=== PATIENT | male | born 1945 | race Caucasian/White ===

== ENCOUNTER 2022-10-18 12:39 | Outpatient (CLI) | payer MEDICARE, SELFPAY ==
--- OUTSIDE RECORDS SUMMARY | 2022-10-18 12:47 | XMS_ITS ---
Author Name RonTima contreras Address [address] [place] [address] Organization [facility] Address [address] [place] [address] Care Team Providers Care Rental Manager Name Role Phone Tima Ball Unavailable [phone] PROBLEMS Type Condition ICD9-CM Code EWN22-PQ Code Onset Dates Condition Status SNOMED Code Problem Thyroid nodule E04.1 Active 744627205 Problem Other male erectile dysfunction N52.8 Active 243760213 Problem Prostate cancer C61 Active 70809727 4 Problem Hypothyroidism E03.9 Active 07592949 Problem OA (osteoarthritis) M19.90 Active 3962 35361 ALLERGIES No Known Allergies ENCOUNTERS Encounter Location Date Diagnosis [facility] [address] [place] [address] Sep, [facility] [address] [place] [address] Mar, Encounter to establish care Z76.89 ; Hypothyroidism E03.9 ; OA (osteoarthritis) M19.90 ; Prostate cancer C61 and Thyroid nodule E04.1 [facility] [address] [place] [address] November, [facility] [address] [place] [address] Aug, Callus of foot L84 ; Hypothyroidism E03.9 and Prostate cancer C61 [facility] [address] [place] [address] 14 May, 2019 Other male erectile dysfunction N52.8 [facility] [address] [place] [address] Feb, Hypothyroidism E03.9 and Prostate cancer C61 [facility] [address] [place] [address] 04 Aug, 2018 Hypothyroidism E03.9 ; Prostate cancer C61 and OA (osteoarthritis) M19.90 [facility] [address] [place] [address] Jul, [facility] [address] [place] [address] Jul, Encounter for screening colonoscopy Z12.11 [facility] [address] [place] [address] Feb, Risk for falls Z91.81 ; Hypothyroidism E03.9 and Prostate cancer C61 [facility] [address] [place] [address] November, Hypothyroid E03.9 [facility] [address] [place] [address] Aug, Hypothyroid E03.9 and Prostate cancer C61 [facility] [address] [place] [address] Jul, [facility] [address] [place] [address] Mar, Thyroid nodule E04.1 [facility] [address] [place] [address] Dec, Hypothyroid E03.9 and Syncope and collapse R55 [facility] [address] [place] [address] November, Hypothyroid E03.9 [facility] [address] [place] [address] Sep, Hypothyroid E03.9 and Syncope and collapse R55 [facility] [address] [place] [address] May, Encounter for drug screening Z02.83 ; Prostate cancer C61 ; Alcohol screening Z13.89 ; LOC (loss of consciousness) R40.20 and Hypothyroidism E03.9 [facility] [address] [place] [address] Feb, [facility] [address] [place] [address] Feb, Hypothyroidism E03.9 [facility] [address] [place] [address] Sep, Back pain M54.9 ; Hypothyroidism E03.9 and OA (osteoarthritis) M19.90 [facility] [address] [place] [address] May, Hypothyroidism E03.9 and Elevated PSA R97.2 [facility] [address] [place] [address] May, HYPOTHYROIDISM 244.9 [facility] [address] [place] [address] May, Elevated PSA R97.2 [facility] [address] [place] [address] May, Abdominal discomfort R10.9 and Encounter for screening for malignant neoplasm of prostate Z12.5 [facility] [address] [place] [address] Jan, HYPOTHYROIDISM 244.9 ; 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 ; Cerumen impaction 380.4 and ND VAC STRPTCS PNEUMNI B V03.82 [facility] [address] [place] [address] Jan, Hypothyroid 244.9 [facility] [address] [place] [address] Jan, Hypothyroid 244.9 [facility] [address] [place] [address] Oct, HYPOTHYROIDISM 244.9 ; Allergic rhinitis due to allergen 477.8 and Cerumen 380.4 [facility] [address] [place] [address] Aug, HYPOTHYROIDISM 244.9 [facility] [address] [place] [address] Aug, HYPOTHYROIDISM 244.9 [facility] [address] [place] [address] May, Carpal tunnel syndrome 354.0 [facility] [address] [place] [address] Jan, Double vision 368.2 [facility] [address] [place] [address] Jul, CVA (cerebral infarction) 434.91 [facility] [address] [place] [address] May, Double vision 368.2 [facility] [address] [place] [address] Apr, Double vision 368.2 and Carotid bruit present 785.9 [facility] [address] [place] [address] Apr, Double vision 368.2 [facility] [address] [place] [address] Sep, [facility] [address] [place] [address] Sep, [facility] [address] [place] [address] Sep, [facility] [address] [place] [address] Jul, [facility] [address] [place] [address] November, IMMUNIZATIONS Vaccine Route Administration Date Status Pneumococcal ADULT NONSTATE PCV13 [id number] IM Intramuscular February 14, 2015 Administered Influenza HISTORY Unknown Apr 05, 2018 Administe red Influenza HISTORY Unknown Apr 24, 2016 Administer ed Influenza HISTORY Unknown Apr 01, 2015 Administe red Influenza HISTORY Unknown Apr 03, 2013 Administe red Influenza HISTORY Unknown Apr 15, 2012 Administe red Pneumococcal Hx-UNSPECIFIED Unknown Apr 24, 2016 Administered SOCIAL HISTORY Qualifiers Date Never Smoker REASON FOR REFERRAL FUNCTIONAL STATUS PLAN OF CARE Activity Details VITAL SIGNS Height 65.5 in 2020-04-15 Height 65.5 in 2019-09-16 Height 65.5 in 2019-02-23 Height 65.5 in 2018-08-25 Height 65.5 in 2018-02-24 Height 65.5 in 2017-08-23 Height 65.5 in 2017-03-22 Height 65.5 in 2016-12-20 Height 65.5 in 2016-09-19 Height 65.5 in 2016-06-20 Height 65.9 in 2015-10-10 Height 65.9 in 2015-06-15 Height 65.9 in 2015-02-14 Height 65.9 in 2014-11-03 Height 65.9 in 2014-06-02 Height N/A in 2014-01-26 Height N/A in 2013-07-28 Height N/A in 2013-06-01 Height 65.9 in 2013-05-18 Weight 139.2 lbs 2020-04-15 Weight 152 lbs 2019-09-16 Weight 150.0 lbs 2019-02-23 Weight 152.6 lbs 2018-08-25 Weight 153.6 lbs 2018-02-24 Weight 154.2 lbs 2017-08-23 Weight 156.4 lbs 2017-03-22 Weight 156.8 lbs 2016-12-20 Weight 159 lbs 2016-09-19 Weight 158.4 lbs 2016-06-20 Weight 158.4 lbs 2015-10-10 Weight 158.6 lbs 2015-06-15 Weight 159.2 lbs 2015-02-14 Weight 163.2 lbs 2014-11-03 Weight 160.3 lbs 2014-06-02 Weight 158.3 lbs 2014-01-26 Weight 166.7 lbs 2013-07-28 Weight 166.4 lbs 2013-06-01 Weight 162.7 lbs 2013-05-18 BMI 22.81 kg/m2 2020-04-15 BMI 24.91 kg/m2 2019-09-16 BMI 24.58 kg/m2 2019-02-23 BMI 25.01 kg/m2 2018-08-25 BMI 25.17 kg/m2 2018-02-24 BMI 25.27 kg/m2 2017-08-23 BMI 25.63 kg/m2 2017-03-22 BMI 25.69 kg/m2 2016-12-20 BMI 26.05 kg/m2 2016-09-19 BMI 25.96 kg/m2 2016-06-20 BMI 25.64 kg/m2 2015-10-10 BMI 25.67 kg/m2 2015-06-15 BMI 25.77 kg/m2 2015-02-14 BMI 26.42 kg/m2 2014-11-03 BMI 25.95 kg/m2 2014-06-02 BMI 25.63 kg/m2 2014-01-26 BMI 26.98 kg/m2 2013-07-28 BMI 26.94 kg/m2 2013-06-01 BMI 26.34 kg/m2 2013-05-18 Temperature 98.0 degrees Fahrenheit Temperature 98.8 degrees Fahrenheit Temperature 98.2 degrees Fahrenheit Temperature 98.7 degrees Fahrenheit Temperature 99 degrees Fahrenheit 2018-02-24 Temperature 98.7 degrees Fahrenheit Temperature 98.2 degrees Fahrenheit Temperature 99 degrees Fahrenheit 2016-12-20 Temperature 98.9 degrees Fahrenheit Temperature 98.2 degrees Fahrenheit Temperature 98.4 degrees Fahrenheit Temperature 98.3 degrees Fahrenheit Temperature 97.7 degrees Fahrenheit Temperature 97.4 degrees Fahrenheit Temperature 98.5 degrees Fahrenheit Temperature 98.7 degrees Fahrenheit Temperature 97.9 degrees Fahrenheit Heart Rate 60 /min 2020-04-15 Heart Rate 68 /min 2019-09-16 Heart Rate 72 /min 2019-02-23 Heart Rate 84 /min 2018-08-25 Heart Rate 64 /min 2018-02-24 Heart Rate 76 /min 2017-08-23 Heart Rate 16 /min 2017-03-22 Heart Rate 72 /min 2016-12-20 Heart Rate 72 /min 2016-09-19 Heart Rate 68 /min 2016-06-20 Heart Rate 64 /min 2015-10-10 Heart Rate 52 /min 2015-06-15 Heart Rate 64 /min 2015-02-14 Heart Rate 48 /min 2014-11-03 Heart Rate 44 /min 2014-06-02 Heart Rate 56 /min 2014-01-26 Heart Rate 64 /min 2013-07-28 Heart Rate 68 /min 2013-06-01 Heart Rate 76 /min 2013-05-18 Respiratory Rate 18 /min 2020-04-15 Respiratory Rate 16 /min 2019-09-16 Respiratory Rate 16 /min 2019-02-23 Respiratory Rate 20 /min 2018-08-25 Respiratory Rate 20 /min 2018-02-24 Respiratory Rate 20 /min 2017-08-23 Respiratory Rate 16 /min 2017-03-22 Respiratory Rate 16 /min 2016-12-20 Respiratory Rate 16 /min 2016-09-19 Respiratory Rate 16 /min 2016-06-20 Respiratory Rate 16 /min 2015-10-10 Respiratory Rate 16 /min 2015-06-15 Respiratory Rate 16 /min 2015-02-14 Respiratory Rate 16 /min 2014-11-03 Respiratory Rate 16 /min 2014-06-02 Respiratory Rate 16 /min 2014-01-26 Respiratory Rate 16 /min 2013-07-28 Respiratory Rate 20 /min 2013-06-01 Respiratory Rate 16 /min 2013-05-18 Oximetry 98 % 2020-04-15 Oximetry 97 % 2019-09-16 Oximetry 96 % 2019-02-23 Oximetry 98 % 2018-08-25 Oximetry 98 % 2018-02-24 Oximetry 97 % 2017-08-23 Oximetry 98 % 2017-03-22 Oximetry 97 % 2016-12-20 Oximetry 98 % 2016-09-19 Oximetry 97 % 2016-06-20 Oximetry 97 % 2015-10-10 Oximetry 98 % 2015-06-15 Oximetry 96 % 2014-11-03 Oximetry 98 % 2014-06-02 Oximetry 97 % 2014-01-26 Oximetry 96 % 2013-07-28 Oximetry 97 % 2013-06-01 Oximetry 96 % 2013-05-18 Blood pressure systolic 124 mm Hg Blood pressure diastolic 66 mm Hg 2020-03 MEDICATIONS Medication Instructions Dosage Frequency Start Date End Date Duration Status Centrum Silver Therapeutic Multiple Vitamins with Minerals orally once a day 1 tab(s) 24h May, Active Latanoprost 0.005% in each eye once a day (at bedtime) Apr, Active Synthroid 88 mcg (0.088 mg) orally once a day 1 tab(s) 24h Active TIMOLOL OPHTHALMIC 0.5% in each affected eye once a day in the am Apr, Active Aspirin 81 MG Orally Once a day 1 tablet 24h Active Revatio 20 MG Orally NEEDED 1 tablet 14 No v, 2018 30 day(s) Unknown PROCEDURES Procedure Date Ordered Result Body Site No HTN DX,BP <120/80 (19116) Mar 22, 2017 No HTN DX,BP <120/80 (55653) Aug 25, 2018 PNEUMOCOCCAL VACC, 13 BENITO IM February 14, 2015 EKG, TRACING May 18, 2013 No HTN DX,BP <120/80 (12269) Feb 24, 2018 EKG INTER (88550) May 18, 2013 Dep screen neg (71187) Feb 24, 2018 Med Rec done (64984) Aug 23, 2017 SBIRT SCREEN negative Jun 20, 2016 BMI normal (91833) Aug 25, 2018 BMI normal (26346) Feb 23, 2019 SBIRT screening 2016-06-20 N/A BMI normal (40208) December 20, 2016 No HTN DX,BP <120/80 (05769) December 20, 2016 Tob non-user (89478) Mar 22, 2017 Tob non-user (44333) Aug 23, 2017 BMI normal (42540) Feb 24, 2018 Med Rec done (06223) Mar 22, 2017 Cardio:Echo,Exercise Stress (CPT-69511,12911,29686,[id number],60093,36745) 2016-08-02 N/A Fall Risk Assessment Completed 2018-02-24 N/A Med Rec done (66439) Feb 24, 2018 Tob non-user (65943) Feb 24, 2018 Med Rec done (58192) Feb 23, 2019 Med Rec done (31090) Aug 25, 2018 Dep screen neg (87409) Aug 23, 2017 Dep screen neg (55326) Mar 22, 2017 Tob non-user (27862) Aug 25, 2018 No HTN DX,BP <120/80 (82420) Feb 23, 2019 REMOVAL IMPACTED CERUMEN (16409) February 14, 2015 Dep screen neg (94209) December 20, 2016 BMI normal (35499) Aug 23, 2017 N.CL,NonState Inj.fee(single or combo)(88324) February 14, 2015 BMI normal (35113) Mar 22, 2017 Med Rec done (08503) December 20, 2016 Tob non-user (35591) December 20, 2016 SBIRT screen w intervention (36100) Jun 20, 2016 Tob non-user (90098) Feb 23, 2019 No HTN DX,BP <120/80 (94892) Aug 23, 2017 RESULTS Name Result Date Reference Range TSH 2020-04-22 TSH* 1.70 0.45-5.33 PSA ULTRASENS 2020-01-15 PSA-DIAGNOSTIC 2019-05-27 TSH 2018-12-10 TSH* 1.76 0.45-5.33 T4 FREE 2018-12-10 T4 FREE 0.97 0.61-1.12 PSA-DIAGNOSTIC 2018-10-23 TESTOSTERONE FREE AND TOTAL 2018-10-23 PSA-DIAGNOSTIC 2018-05-19 PSA 7.9 0.1-4.0 BASEMET 2018-03-12 AGE 72 BUN 23.0 7.0-18.0 BUN/CREAT 21 10-20 CALCIUM 8.8 8.5-10.1 CO2 28.9 21.0-32.0 CHLORIDE 106.0 98.0-107 CREATININE 1.1 0.6-1.3 GFR 66.0 60.0-41371 GLUCOSE 121 70-117 POTASSIUM 4.2 3.5-5.1 SODIUM 140 136-145 Path:Prostate biopsy 2017-12-31 Findings: TSH 2017-12-11 PSA-DIAGNOSTIC 2017-12-04 PSA-DIAGNOSTIC 2017-07-23 US Neck/Thyroid 2017-04-03 Image Accessible PSA-DIAGNOSTIC 2017-02-07 TSH 2016-12-11 PSA-DIAGNOSTIC 2016-10-01 PSA-DIAGNOSTIC 2016-06-21 LIPID W/ CALCULATED LDL 2016-06-21 CBC WITH AUTO DIFF 2016-06-21 #BASO 0.03 0.02-0.10 COMPMET 2016-06-21 AGE 71 TSH 2016-06-21 EKG #1-IN OFFICE TODAY 2016-06-20 Path:Prostate biopsy 2016-04-09 Findings: PSA FREE & TOTAL (DIAGNOSTIC) 2016-03-19 PSA FREE & TOTAL (DIAGNOSTIC) 2015-06-20 PSA Free 1.16 PSA Total 5.9 % Free PSA 19.7 Serial Monitoring T4 FREE 2015-05-28 TSH 2015-05-28 PSA-SCREEN 2015-05-28 T4 FREE 2015-02-05 TSH 2015-02-05 TSH 2014-10-30 T4 FREE 2014-10-30 TSH 2014-08-28 T4 FREE 2014-08-28 Cardio: Echo,TTE,Age 17+,transTHORACIC* CPT-02314 THYROID PROFILE 2013-05-18 T3 UPTAKE TOTAL T4 0.79 TSH 10.01 FTI (free thyroxine index) EKG #1-IN OFFICE TODAY MULTIPLE LABS 2013-05-15 CBC WITH AUTO DIFF 2013-05-15 CORRECT ANC WBC 7.4 HGB 14.6 HCT 44.9 PLATELET 207 RBC MCV MCH MCHC RDW MPV ANC #IG #LYMPH #EOS #MONO #BASO NEUTROPHIL % IG% LYMPHOCYTE % MONOCYTE % EOSINOPHIL % BASOPHIL % ATYP LYMPH PLT MORPH PROMYELO MACRO MICRO NRBC HYPO BLAST ANISO BAND BASO EOS LYMPH META MONO MYELO POIK RBC MORPH SEG MANUAL DIFF #IMM GRAN %IMM GRAN COMPMET 2013-05-15 ALBUMIN ALKPHOS ALT 29 AST 16 BUN 14 CALCIUM 8.7 CHLORIDE CARBON DIOXIDE CREATININE STANDARDIZED 0.8 DIRECT BILIRUBIN ESTIMATED GLOMERULAR FILTRATION 96.4 GLUCOSE 101 POTASSIUM 4.2 SODIUM 143 TOTAL BILIRUBIN TOTAL PROTEIN EGFR INTERPRETATION BUN/CREAT CORRECT AGE zzGLUCOSE zzCREATININE zzSODIUM zzPOTASSIUM zzCHLORIDE zzCO2 zzCALCIUM zzTOTAL PROTEIN zzALBUMIN zzTOTAL BILI zzALT zzAST zzALKALINE PHOS BUN*/CREAT* TSH 2013-05-15 THYROID STIMULATING HORMONE 10.58 LIPID W/ CALCULATED LDL 2013-05-15 CHOLESTEROL 122 TRIGLYCERIDE 43 HDL 59 LDL CALC 54.4 LDL DIRECT CHOL/HDL zzCholesterol zzHdl zzTriglycerides zzChol/HDL LDL CALC* REASON FOR VISIT 6 MTH FU / CPE, new pcp, Pt. states he has been feeling well, 6 mth fu hyperthyroidism, prostate cancer, refill levothyroxine, 6 MTH f/u hypothyroidsm, prostate CA, 6 mo f/u hyp, MED list updated, 6 mth fu hypothyroid, prostate CA, 6 mo f/u hypothyroid, prostate, starting radiation tx tomorrow, having 28 in all, surgical hx updated, colonoscopy , f/u hypothyroidsm, prostate CA, Annual Fall Risk Assessment, 6 MTH FU HYPO THYROID, synthroid refill, f/u hypothyroid, No medication refills needed atthis time., 5 mth fu, AWV-MA Declined, 3 mth fu hypothyroid and syncopy, No medication refills needed at this time., 3 mth fu hypothyroid, refill levothyroxine/awaiting lab results, 3 mth fu pvc, hada stress test and heart monitor, and having nuclear stress nest week/jf, no further episodes of LOC, Comp review, levothyrohine refill, back pain worse at night time, started last fall, has tried tylenol, with little effect/jf, has a had time in the ma when he wakes up to bend over/jf, 4 mth f/u Hyperthyroid and elevated PSA, Refill Synthroid, urology referral, PSA test, f/u hypothyroidsm, increase synthroid, lab orders, 3 mth f/u hyperthyroid, labs prior to appt, F/U THYROID, labs, script for Synthroid, over due labs, 6 mo f/u db vision, Left hand numbness, 6 mo f/u CVA, double vision, vision still the same, Medications reviewed w/pt,med. list is correct/ jf, No medication refills needed at this time./jf, f/u double vision, f/u meds--office r/s patient aware 06/24, f/u echo, carotid US, F/U visual disturbance, Meds reviewed by pt: change as follows/ taked ASA 81 mg, and centrum muti-vit1 a day, meds, f/u eyes/lab work, seeing double vision for about 2 weeks, Meds reviewed by pt,dose change as follows/ timolol eye gel 0.5 % every am, and lantanoprost 0.005% 1 gtt es eye at HS/JF, [facility] Insurance Providers Health Insurance Type Health Plan Insurance Address Health Plan Insurance Phone Health Plan Insurance Name Health Plan Coverage Dates Member ID Patient Relationship to Subscriber Patient Address Patient Phone Patient Name Patient Date of Subscriber ID Subscriber Name Subscriber Date of Group No MEDICARE 3000 [employer] [facility] [id number] MEDICARE self [place]T [place] [id number] [employer] [address] [place] [address] [employer] self [place] [id number] SELF PAY GENERAL INS [address] [facility] [id number] [employer] self [place] [id number] SELF PAY NO INSURANCE [address] [facility] [id number] SELF PAY NO INSURANCE self [place] [id number]
[2022-10-19 18:35] LABS: PSA, Ultrasensitive 0.11 ng/mL (<= 6.5)
== END 2022-10-18 12:40 | disposition home or self-care (01) ==
PROVIDERS: PCP Nurse Practitioner Family; Visit Provider Nurse Practitioner Family
DX: C61 Malignant neoplasm of prostate (principal)
CPT/HCPCS: 36415; 84153